=== PATIENT | male | born 2000 | race Caucasian/White ===

== ENCOUNTER 2021-06-09 13:13 | Emergency (ER) | payer BC, OTHER ==
[~2021-06-09] VITALS: Ht 193 cm; Wt 81.7 kg
[2021-06-09 13:46] LABS: ABSOLUTE NEUTROPHILS 2.4 thou/uL (1.4-8.2); BASOPHILS 1.3 % (0.0-2.0); EOSINOPHILS 1.2 % (0.0-3.0); HEMATOCRIT 46.2 % (42.0-52.0); HEMOGLOBIN 15.5 gm/dL (14.0-18.0); LYMPHOCYTES 38.9 % (24.0-44.0); MCH 31.2 pg (26.0-34.0); MCHC 33.6 g/dL (28.0-37.0); MCV 92.7 fL (80.0-100.0); MONOCYTES 13.4 % (1.0-8.0); PLATELET COUNT 255 thou/uL (150-400); POLYS 45.2 % (36.0-66.0); RBC 4.98 mil/uL (4.50-6.00); RDW 12.8 % (10.5-14.5); WBC 5.4 thou/uL (4.0-11.0)
[2021-06-09 13:52] LABS: ANION GAP 10 mmol/L (7-16); BUN 13 mg/dL (7-18); CALCIUM 8.9 mg/dL (8.5-10.1); CHLORIDE 106 mmol/L (98-107); CO2 27 mmol/L (21-32); GLUCOSE 90 mg/dL (74-106); POTASSIUM 3.5 mmol/L (3.5-5.1); SODIUM 143 mmol/L (136-145)
[2021-06-09 14:05] LABS: ALBUMIN 4.1 g/dL (3.4-5.0); SGOT 22 U/L (15-37); SGPT 59 U/L (30-65); TOTAL BILIRUBIN 0.7 mg/dL (0.2-1.0); TOTAL PROTEIN 7.6 g/dL (6.4-8.2); TROPONIN-I <0.06 ng/mL (<0.06)
[2021-06-09 15:38] VITALS: BP 120/58
--- NOTE | 2021-06-10 07:26 | EKG ---
[place] [address] [place] [address] ELECTROCARDIOGRAM REPORT Name: AVTAR BEARDEN [id number] Admission: 06/09/21 Attend Phys: Discharge: 06/09/21 Date of : 2 Report #: [id number] [facility] ED Test Date: 2021-06-09 Test Time: 13:29:06 Pat Name: AVTAR BEARDEN Department: Room: Gender: Manager Gallery: [place] : 2000 Requested By: Thiago Robertson Order Number: [id number] MD: Reymundo Dominguez Measurements Intervals [place] Rate: 89 P: 44 FL: 148 QRS: 84 QRSD: 99 T: 39 QT: 352 QTc: 429 Interpretive Statements Sinus rhythm Borderline Q waves in inferior leads ST elev, probable normal early repol pattern No previous ECG available for comparison Electronically Signed On 06-10-2021 7:26:09 CDT by Reymundo Dominguez [email or web address] <ELECTRONICALLY SIGNED> By: Reymundo Dominguez MD, [facility] 06/10/21 0726 1329 [id number] Reymundo Dominguez MD, FACC /EPI
== END 2021-06-09 15:38 | disposition home or self-care (01) ==
LOC: ER 13:13
PROVIDERS: Emergency Medicine
DX: U07.1 COVID-19 (principal); R00.0 Tachycardia, unspecified

== ENCOUNTER → 2021-06-11 | Outpatient (CLI) | payer BC, OTHER | LOC: SJCVCIMAG 11:15 | PROVIDERS: ATTEND Internal Medicine Cardiovascular Disease | DX: I37.1 Nonrheumatic pulmonary valve insufficiency (principal); Z86.16 Personal history of COVID-19 ==

== ENCOUNTER → 2021-10-28 | Outpatient (CLI) | payer BC, OTHER | LOC: RAD 08:40 | PROVIDERS: ATTEND Family Medicine | DX: K44.9 Diaphragmatic hernia without obstruction or gangrene (principal) ==